=== PATIENT | male | born 1965 | race Hispanic/Latino ===

== ENCOUNTER → 2023-04-27 | Outpatient (CLI) | payer OTHER ==
[2023-04-27 12:37] LABS: ALBUMIN 3.7 g/dL (3.5-5.0); BILIRUBIN,DIRECT 0.1 mg/dL (0.0-0.3); BILIRUBIN,TOTAL 0.3 mg/dL (0.2-1.0); TOTAL PROTEIN, SERUM 8.6 g/dL (6.0-8.3)
== END | disposition home or self-care (01) ==
LOC: LAB 09:22
PROVIDERS: ATTEND Internal Medicine Cardiovascular Disease
DX: I25.810 Atherosclerosis of coronary artery bypass graft(s) without angina pectoris (principal); I10 Essential (primary) hypertension
CPT/HCPCS: 36415; 80061; 80076

== ENCOUNTER → 2023-12-17 | Outpatient (CLI) | payer OTHER ==
[~2023-12-17] MED LIST: AEC81 PO; ALPR1TAB2 PO; AMLO-258 PO; ATOR10TA69 PO; CARV25TA PO; FOLI0.8T22 PO; INSLAN SQ; OMEP40CA21 PO; ROPI0.5T37 PO; SEVE800T27 PO; SODI5POW2 PO; ZOLP10TA2 PO
[2023-12-17 13:02] LABS: BILIRUBIN,DIRECT 0.1 mg/dL (0.0-0.3); BILIRUBIN,TOTAL 0.4 mg/dL (0.2-1.0); TOTAL PROTEIN, SERUM 9.1 g/dL (6.0-8.3)
== END | disposition home or self-care (01) ==
LOC: LAB 09:44
PROVIDERS: ATTEND Internal Medicine Cardiovascular Disease
DX: E78.00 Pure hypercholesterolemia, unspecified (principal); I50.32 Chronic diastolic (congestive) heart failure; Z95.1 Presence of aortocoronary bypass graft
CPT/HCPCS: 36415; 80061; 80076